=== PATIENT | female | born 1945 | race Caucasian/White ===

== ENCOUNTER 2020-02-21 18:05 | Emergency (ER) | payer OTHER, SELFPAY ==
[2020-02-21 18:06] VITALS: BP 122/77; PULSE 106; RESP 18; O2SAT 97; BMI 33.4
--- NOTE | 2020-02-21 18:06 | ED_ITS ---
Entered by Abiel Dunham, acting as scribe for Mary Rossi HPI - General Adult General: Chief complaint: Fall Stated complaint: FALL; AMS Time Seen by Provider: 02/21/20 18:16 History of Present Illness: HPI narrative: 74 yo female presents with fall. Pt is a senior living resident and was found in the floor. Pt is a bed bound pt. Pt doesn't know how she ended up there. Pt denies any pain. Patient has dementia and advanced Parkinson's. She is in hospice for these issues and diabetes. The patient is denying any pain here and states overall she feels fine. complaint: fall Onset (ago): hour(s) Associated symptoms: Reports nausea; Deny chest pain, confusion, diaphoresis, dyspnea, headache(s), malaise, rash, palpitations or syncope Review of Systems General: Reports: other (negative unless marked) Const: Denies: fever, chills, body aches, fatigue, malaise or diaphoresis Eyes: Denies: change in vision or blurry vision ENMT: Denies: throat pain, painful swallowing, hoarseness, ear pain, ear discharge, Change in hearing or nasal discharge Card: Denies: chest pain, palpitations, irregular heart rhythm, syncope, pre- syncope, shortness of breath on exertion or shortness of breath when lying down Resp: Denies: shortness of breath, productive cough, non-productive cough, wheezing, coughing up blood or chest congestion GI: Reports: nausea : Denies: flank pain, painful urination, urinary frequency, urinary urgency, decreased urine ouput, urinary incontinence or blood in urine Musc: Denies: neck pain, back pain, extremity pain, extremity swelling, joint pain, joint swelling, joint warmth or joint stiffness Skin/Breast: Denies: rash, skin tenderness or yellow skin Neuro: Denies: headache, numbness in extremities, weakness in extremities, changes in sensation, lack of coordination, difficulty walking, dizziness, vertigo or confusion Endo: Denies: excessive thirst, tired all the time, cold intolerance, excessive sweating, flushing or hot flashes Efren/Lymph: Denies: easy bruising, easy bleeding, petechiae or enlarged lymph nodes All/Imm: Denies: hives, throat swelling, tongue swelling, facial swelling or acute wheezing PFSH ED PFSH: Medical History (Updated 02/21/20 @ 22:30 by Mary Rossi) Diabetes Pneumonia Social History Smoking and tobacco status: unknown if ever smoked Physical Exam Const: COMMON NORMALS: no apparent distress, oriented x3, no limitations, healthy appearing and well nourished EXAM LIMITATIONS: no altered mental status GENERAL APPEARANCE: cooperative, well kempt and well developed ORIENTATION/CONSCIOUSNESS: Yes awake HENMT: COMMON NORMALS: normocephalic, head/scalp atraumatic, hearing grossly normal bilaterally, external ears normal, EAC's normal, external nose normal and moist oral mucous membranes HEAD & SCALP: normal to inspection, normocephalic and atraumatic FACE & SINUS: normal facial exam and face symmetric NOSE: external nose normal and nares normal EXTERNAL EAR: Yes external ears normal EXTERNAL AUDITORY CANAL: EAC's normal MOUTH: oral and palatal mucosa normal and tongue normal Eye: COMMON NORMALS: PERRL, EOMs intact bilaterally, conjunctivae normal and no scleral icterus GENERAL EYE: normal appearance of both eyes and normal light reflex CONJUNCTIVA: Yes conjunctivae normal SCLERA: sclerae normal CORNEA: Yes corneas normal PUPIL: Yes PERRL DIRECT OPHTHALMOSCOPY: Yes normal light reflex Neck/C-Spine: COMMON NORMALS: full ROM, no lymphadenopathy, supple, no meningeal signs and no JVD GENERAL: Yes normal visual inspection and Yes trachea midline CERVICAL SPINE: Yes cervical ROM normal Chest: COMMONS NORMALS: inspection of chest normal and palpation of chest normal Resp: COMMON NORMALS: normal respiratory effort, no retractions, no use of accessory muscles and clear to auscultation bilaterally EFFORT & INSPECTION: Yes able to speak in complete sentences AUSCULTATION: clear to auscultation bilaterally Cardio: COMMON NORMALS: no JVD, regular rate, regular rhythm, S1 normal heart sound, S2 normal heart sound, no gallops, no clicks, no murmurs and no rub JUGULAR VENOUS DISTENTION: no JVD RATE: regular rate RHYTHM: regular rhythm HEART SOUNDS: S1 normal and S2 normal GI: COMMON NORMALS: soft to palpation, non-tender, no hepatosplenomegaly and no masses INSPECTION: Yes normal to inspection PALPATION: Yes soft and Yes no hepatosplenomegaly : COMMON NORMALS: Yes no CVA tenderness BLADDER/KIDNEY EXAM: Yes no CVA tenderness Back/Pelvis: COMMON NORMALS: no CVA tenderness, thoracic and lumbar spine normal to inspection, no thoracic nor lumbar tenderness and thoraco-lumbar ROM normal Extremity: COMMON NORMALS: normal to inspection, full ROM, normal capillary refill, no joint enlargement, no clubbing, cyanosis or edema and no calf tenderness Neuro: COMMON NORMALS: oriented x3, CN's II-XII intact bilaterally, moves all extremities, no focal motor deficits and no sensory deficits noted MENINGEAL SIGNS: Yes no meningeal signs Psych: COMMON NORMALS: mental status grossly normal, thought process normal, cooperative, affect normal, speech normal and activity/motor behavior normal APPEARANCE: Yes well kempt SPEECH: Yes normal speech THOUGHT PROCESS: normal thought process Skin: COMMON NORMALS: no rashes or lesions noted, skin turgor normal, no jaundice, no petechiae and no mottling GENERAL SKIN EXAM: no rashes or lesions noted and turgor normal Course Vital Signs: Vital signs: Vital Signs Pulse Rate 104 H 02/21/20 19:17 Respiratory Rate 13 02/21/20 19:17 Blood Pressure 135/87 02/21/20 19:17 Pulse Oximetry 99 02/21/20 19:17 MDM - General Adult MDM Narrative: Medical decision making narrative: The patient has a UTI and appears to have had an NSTEMI. She also has acute on chronic renal insufficiency. The patient does not want any aggressive care and wants to be discharged back to the senior living. I reviewed this with the patient's primary emergency contact Amanda brandon. She will converse with the patient's but the patient has expressed in the past she does not want anything aggressive so if she wants to go home they are ready to let her go home. I reviewed all this with Dr. Liz prison classification counselor for Dr. Zhou and she understands. We will treat the patient's UTI and they will follow her in the senior living. She will continue on in hospice care. Lab Data: Attestation: I reviewed the patient's lab results. Labs: Lab Results 02/21/20 02/21/20 02/21/20 Range/Units 18:30 18:30 18:30 WBC 11.8 H (4.0-10.0) 10^3/ uL RBC 4.30 (4.1-5.3) 10^6/u L Hgb 11.9 (11.5-15.3) g/dL Hct 38.2 (37.0-47.0) % MCV 88.8 (81-99) fL MCH 27.7 L (28.0-34.0) pg MCHC 31.2 (30.0-36.0) g/dL RDW 13.8 (12.1-15.1) % Plt Count 211 (130-400) 10^3/c mm MPV 12.7 H (7.4-10.4) fL Neut % (Auto) 87.1 % Lymph % (Auto) 6.5 % Vance % (Auto) 5.1 % Eos % (Auto) 0.3 % Baso % (Auto) 0.4 % Neut # (Auto) 10.3 H (1.8-7.7) 10^3/u L Lymph # (Auto) 0.8 (0.8-4.8) 10^3/u L Vance # (Auto) 0.6 (0.2-0.9) 10^3/u L Eos # (Auto) 0.0 (0.0-0.8) 10^3/u L Baso # (Auto) 0.1 (0.0-0.1) 10^3/u L Nucleated RBC % (a uto) 0 % Nucleated RBCs # 0.0 /100WBC Sodium 138 (136-145) mmol/L Potassium 3.5 (3.5-5.1) mmol/L Chloride 94 L (98-107) mmol/L Carbon Dioxide 26 (22-29) mmol/L Anion Gap 21.5 H (5-19) BUN 21 (8-23) mg/dL Creatinine 2.2 H (0.5-0.9) mg/dL Glucose 121 H (65-115) mg/dL Calculated Osmolal ity 284 L (285-295) mOsm/k g Calcium 10.8 H (8.5-10.5) mg/dL Magnesium 1.7 (1.7-2.3) mg/dL Total Bilirubin 0.5 (0.15-1.2) mg/dL AST 7 (0-32) U/L ALT < 5 (0-33) U/L Alkaline Phosphata se 84 (35-105) IU/L Creatine Kinase 118 (26-192) U/L Troponin T Baselin e 125 H* (0-10) ng/mL Troponin T 120 Min [place] (0-10) ng/mL Delta Troponin T (0-10) ABS# Total Protein 7.1 (6.6-8.7) g/dL Albumin 4.2 (3.5-5.2) g/dL Globulin 2.9 (1.3-4.6) g/dL Urine Color (Yellow) Urine Appearance (CLEAR) Urine pH (5-7) Ur Specific Gravit y (1.005-1.030) Urine Protein (Negative) Urine Glucose (UA) (Normal) Urine Ketones (Negative) Urine Blood (Negative) Urine Nitrate (Negative) Urine Bilirubin (NEGATIVE) Urine Urobilinogen (Negative) mg/dL Ur Leukocyte Christina ase (Negative) Urine RBC (0-2) /hpf Urine WBC (0-5) /hpf Ur Squamous Epith Cells (0-5) Urine Bacteria (NONE) 02/21/20 02/21/20 Range/Units 20:35 21:50 WBC (4.0-10.0) 10^3/ uL RBC (4.1-5.3) 10^6/u L Hgb (11.5-15.3) g/dL Hct (37.0-47.0) % MCV (81-99) fL MCH (28.0-34.0) pg MCHC (30.0-36.0) g/dL RDW (12.1-15.1) % Plt Count (130-400) 10^3/c mm MPV (7.4-10.4) fL Neut % (Auto) % Lymph % (Auto) % Vance % (Auto) % Eos % (Auto) % Baso % (Auto) % Neut # (Auto) (1.8-7.7) 10^3/u L Lymph # (Auto) (0.8-4.8) 10^3/u L Vance # (Auto) (0.2-0.9) 10^3/u L Eos # (Auto) (0.0-0.8) 10^3/u L Baso # (Auto) (0.0-0.1) 10^3/u L Nucleated RBC % (a uto) % Nucleated RBCs # /100WBC Sodium (136-145) mmol/L Potassium (3.5-5.1) mmol/L Chloride (98-107) mmol/L Carbon Dioxide (22-29) mmol/L Anion Gap (5-19) BUN (8-23) mg/dL Creatinine (0.5-0.9) mg/dL Glucose (65-115) mg/dL Calculated Osmolal ity (285-295) mOsm/k g Calcium (8.5-10.5) mg/dL Magnesium (1.7-2.3) mg/dL Total Bilirubin (0.15-1.2) mg/dL AST (0-32) U/L ALT (0-33) U/L Alkaline Phosphata se (35-105) IU/L Creatine Kinase (26-192) U/L Troponin T Baselin e (0-10) ng/mL Troponin T 120 Min [place] 133.3 H (0-10) ng/mL Delta Troponin T 8.3 (0-10) ABS# Total Protein (6.6-8.7) g/dL Albumin (3.5-5.2) g/dL Globulin (1.3-4.6) g/dL Urine Color Yellow (Yellow) Urine Appearance Cloudy (CLEAR) Urine pH 5 (5-7) Ur Specific Gravit y 1.020 (1.005-1.030) Urine Protein 1+ H (Negative) Urine Glucose (UA) Norm (Normal) Urine Ketones Negative (Negative) Urine Blood 2+ H (Negative) Urine Nitrate Negative (Negative) Urine Bilirubin Neg (NEGATIVE) Urine Urobilinogen Norm (Negative) mg/dL Ur Leukocyte Christina ase 2+ H (Negative) Urine RBC 15-25 H (0-2) /hpf Urine WBC >100 H (0-5) /hpf Ur Squamous Epith Cells 0-4 H (0-5) Urine Bacteria 3+ H (NONE) Imaging Data^: CT Head: Radiologist's impression: [address] [address] [address] Scan Report Signed Patient: Emily Barr Unit #: [id number] : 1945 Age/Sex: 74 / F ADM Date: 02/21/20 Loc: ER Room/Bed: Attending Dr: Ordering Provider/Ordering MD: Mary Rossi DO Date of Service: 02/21/20 Procedure(s): CT head wo con* [id number] Accession Number(s): [id number] Report Number: [id number] PROCEDURE INFORMATION: Exam: CT Head Without Contrast Exam date and time: 02/21/2020 7:48 PM Age: 74 years old Clinical indication: Altered mental status/memory loss; Confusion or disorientation; Additional info: Evans/ams TECHNIQUE: Imaging protocol: Computed tomography of the head without contrast. Total DLP: 723.14 mGy-cm Radiation optimization: All CT scans at this facility use at least one of these dose optimization techniques: automated exposure control; mA and/or kV adjustment per patient size (includes targeted exams where dose is matched to clinical indication); or iterative reconstruction. COMPARISON: CT head wo con* [id number] 05/06/2019 12:50 AM FINDINGS: Brain: There is mild cortical atrophy. Midline shift: There is no shift of midline structures. Ventricles: Normal. No ventriculomegaly. Bones/joints: Unremarkable. No acute fracture. Sinuses: Is a tiny bit of fluid in the right maxillary sinus in keeping with mild sinus disease. Mastoid air cells: Visualized mastoid air cells are well aerated. Soft tissues: Unremarkable. CT/CT head wo con* [id number] IMPRESSION: No acute intracranial finding. Radiation Dose CTDIVOL = (mGy): DLP = 723.14 (mGy-cm) Dictated By: Rosendo Moreno Signed By: Rosendo Moreno Signed Date/Time: 02/21/202039 DD/ 38 CXR: My impression: No acute cardiopulmonary findings. Cardiomegaly. Xray Ortho: My impression: Pelvis -no acute findings. EKG Data^: EKG 1: Attestation: I personally reviewed and interpreted this EKG as follows: EKG interpretation date: 02/21/20 EKG interpretation time: 19:00 Interpretation: Atrial fibrillation with a ventricular rate of 109 beats a minute, no acute ST or T wave changes. Baseline artifact present. Computer generated interpretation: Head CT 02/21/20 19:46 IMPRESSION: No acute intracranial finding. Radiation Dose CTDIVOL = (mGy): DLP = 723.14 (mGy-cm) EKG 2: Attestation: I personally reviewed and interpreted this EKG as follows: EKG interpretation date: 02/21/20 EKG interpretation time: 19:32 Interpretation: Atrial fibrillation with a ventricular rate of 96 beats a minute, nonspecific ST and T wave changes. Baseline artifact present. Computer generated interpretation: Head CT 02/21/20 19:46 IMPRESSION: No acute intracranial finding. Radiation Dose CTDIVOL = (mGy): DLP = 723.14 (mGy-cm) EKG 3: Attestation: I personally reviewed and interpreted this EKG as follows: EKG interpretation date: 02/21/20 EKG interpretation time: 20:41 Interpretation: Atrial fibrillation with ventricular of 112 beats a minute, no acute ST or T wave changes. Computer generated interpretation: Head CT 02/21/20 19:46 IMPRESSION: No acute intracranial finding. Radiation Dose CTDIVOL = (mGy): DLP = 723.14 (mGy-cm) Discharge Plan Discharge Patient Disposition: Home, Self-Care Clinical Impression: Acute UTI, Non-ST elevation VT (NSTEMI) Condition: Stable Prescriptions: New cefdinir 300 mg capsule 300 mg PO Q12H 10 Days Qty: 20 RF: 0 Discharge Orders: Discharge Order (Routine); Ordered 02/21/20 Ordered By: Mary Rossi Referrals: Nemo Jacobsen MD [Primary Care Provider] - 1-3 days Discharge Diet: Advance as tolerated Discharge Activity: Increase activity as tolerated Patient Instructions: Urinary Tract Infection in Women (ED), Acute Coronary Syndrome (ED) Activity Restrictions/Additional Instructions: Please return to the ER immediately for any of the signs or symptoms listed on your discharge instruction sheets, worsening/changing of your symptoms, you are not getting better as quickly as expected, or for ANY other cause or concerns. If you change your mind and wish to return to the ER for further evaluation and care you are more than welcome to do so at any time. Coding Level of Care Code ED Stripper Machine Operator for Chg Fwd Exam Comprehensive The documentation recorded by the Roly richardson Kialy, accurately reflects the service I personally performed and the decisions made by Enid topete Eli N Feb 21, 2020 18:05
--- NOTE | 2020-02-21 18:21 | ECG_ITS ---
Measurements Intervals [place] Rate: 112 P: MI: 0 QRS: 68 QRSD: 98 T: 252 QT: 279 QTc: 382 ATRIAL FIBRILLATION WITH RAPID VENTRICULAR RESPONSE NONSPECIFIC ST & T-WAVE ABNORMALITY Compared to ECG 02/21/2020 19:00:04 No significant changes Electronically Signed On 02-22-2020 19:21:34 CDT by Cara Estrella M.D. [email or web address]
--- NOTE | 2020-02-21 18:21 | XRR_ITS ---
PROCEDURE INFORMATION: Exam: XR Chest, 1 View Exam date and time: 02/21/2020 6:39 PM Age: 74 years old Clinical indication: Cough TECHNIQUE: Imaging protocol: XR of the chest Views: 1 view. COMPARISON: CR Chest 1 [place] [id number] 11/27/2019 7:31 PM FINDINGS: Lungs: No focal peripheral lung consolidation, air bronchogram formation, or silhouette sign. Pleural space: No pleural effusion or pneumothorax. Heart/Mediastinum: The cardiac silhouette is not enlarged. The mediastinal contours are normal. Bones/joints: There are multilevel bridging osteophytes in the spine. Soft tissues: There is a skin fold projecting over the left hemithorax. XR/XR chest 1V portable [id number] IMPRESSION: No pneumonia.
[2020-02-21 18:33] LABS: Basophils # 0.1 10^3/uL (0.0-0.1); Basophils % 0.4 %; Eosinophils % 0.3 %; Hematocrit 38.2 % (37.0-47.0); Hemoglobin 11.9 g/dL (11.5-15.3); Lymphocytes # 0.8 10^3/uL (0.8-4.8); Lymphocytes % 6.5 %; Mean Corpuscular HGB Conc 31.2 g/dL (30.0-36.0); Mean Corpuscular Hemoglobin 27.7 pg (28.0-34.0); Mean Corpuscular Volume 88.8 fL (81-99); Mean Platelet Volume 12.7 fL (7.4-10.4); Monocytes # 0.6 10^3/uL (0.2-0.9); Monocytes % 5.1 %; Neutrophils # 10.3 10^3/uL (1.8-7.7); Neutrophils % 87.1 %; Nucleated Red Blood Cells % 0 %; Platelet Count 211 10^3/cmm (130-400); Red Cell Distribution Width 13.8 % (12.1-15.1); White Blood Count 11.8 10^3/uL (4.0-10.0)
--- NOTE | 2020-02-21 18:38 | ECG_ITS ---
Measurements Intervals [place] Rate: 109 P: MT: 0 QRS: 68 QRSD: 94 T: 251 QT: 352 QTc: 476 ATRIAL FIBRILLATION WITH RAPID VENTRICULAR RESPONSE LOW QRS VOLTAGE IN PRECORDIAL LEADS [QRS DEFLECTION < 1.0 mV IN CHEST LEADS] NONSPECIFIC ST & T-WAVE ABNORMALITY Compared to ECG 11/27/2019 19:34:55 Low QRS voltage now present T-wave abnormality still present Electronically Signed On 02-21-2020 20:35:53 CDT by Cara Estrella M.D. [email or web address]
[2020-02-21] MEDS: sodium chloride 0.9% 1,000 ML 999 ML IV (18:49)
[2020-02-21] MEDS: ondansetron 2 mg/ML SDV 2 mL 4 MG IVP ×2 (18:50→20:58)
[2020-02-21 18:54] LABS: Alanine Aminotransferase < 5 U/L (0-33); Albumin Level 4.2 g/dL (3.5-5.2); Alkaline Phosphatase 84 IU/L (35-105); Anion Gap 21.5 (5-19); Aspartate Amino Transferase 7 U/L (0-32); Blood Urea Nitrogen 21 mg/dL (8-23); Calcium 10.8 mg/dL (8.5-10.5); Carbon Dioxide 26 mmol/L (22-29); Chloride 94 mmol/L (98-107); Creatine Phosphokinase 118 U/L (26-192); Globulin 2.9 g/dL (1.3-4.6); Glucose 121 mg/dL (65-115); Magnesium 1.7 mg/dL (1.7-2.3); Osmolality Calculated 284 mOsm/kg (285-295); Potassium 3.5 mmol/L (3.5-5.1); Sodium 138 mmol/L (136-145); Total Bilirubin 0.5 mg/dL (0.15-1.2); Total Protein 7.1 g/dL (6.6-8.7)
[2020-02-21 19:17] VITALS: BP 135/87; PULSE 104; RESP 13; O2SAT 99
[2020-02-21 19:19] LABS: Troponin(5th) Baseline 125 ng/mL (0-10)
--- NOTE | 2020-02-21 19:46 | CTR_ITS ---
PROCEDURE INFORMATION: Exam: CT Head Without Contrast Exam date and time: 02/21/2020 7:48 PM Age: 74 years old Clinical indication: Altered mental status/memory loss; Confusion or disorientation; Additional info: Evans/ams TECHNIQUE: Imaging protocol: Computed tomography of the head without contrast. Total DLP: 723.14 mGy-cm Radiation optimization: All CT scans at this facility use at least one of these dose optimization techniques: automated exposure control; mA and/or kV adjustment per patient size (includes targeted exams where dose is matched to clinical indication); or iterative reconstruction. COMPARISON: CT head wo con* [id number] 05/06/2019 12:50 AM FINDINGS: Brain: There is mild cortical atrophy. Midline shift: There is no shift of midline structures. Ventricles: Normal. No ventriculomegaly. Bones/joints: Unremarkable. No acute fracture. Sinuses: Is a tiny bit of fluid in the right maxillary sinus in keeping with mild sinus disease. Mastoid air cells: Visualized mastoid air cells are well aerated. Soft tissues: Unremarkable. CT/CT head wo con* [id number] IMPRESSION: No acute intracranial finding. Radiation Dose CTDIVOL = (mGy): DLP = 723.14 (mGy-cm)
[2020-02-21] MEDS: morphine 4 mg/mL SDV 1 mL IVP (20:58)
[2020-02-21 21:01] LABS: Troponin 5 2HR Delta 8.3 ABS# (0-10)
[2020-02-21 21:03] LABS: Troponin 5 2HR 133.3 ng/mL (0-10)
--- NOTE | 2020-02-21 21:12 | XRR_ITS ---
PROCEDURE INFORMATION: Exam: XR Bilateral Hips with Pelvis when Performed Exam date and time: 02/22/2020 7:08 AM Age: 74 years old Clinical indication: Pain and injury or trauma; Fall; Initial encounter; Blunt trauma (contusions or hematomas); Bilateral; Pelvic region; Hip pain and pelvic pain; Injury date: 02/21/20; TECHNIQUE: Imaging protocol: XR bilateral hips with pelvis when performed. Views: 2 views. COMPARISON: CR Pelvis AP 1 or 2 views* [id number] 01/13/2019 10:27 AM FINDINGS: Bones/joints: No fracture. No dislocation. No significant hip joint space narrowing. Soft tissues: No acute soft tissue abnormality. XR/XR hip BI m 5V wo/w pel* [id number] IMPRESSION: No acute osseous abnormality.
[2020-02-21] MEDS: aspirin 325 mg Tablet PO (22:06)
[2020-02-21 22:18] LABS: Bilirubin Urine Neg (NEGATIVE); Blood Urine 2+ (Negative); Glucose Urine UA Norm (Normal); Ketones Urine Negative (Negative); Leukocyte Esterase Urine 2+ (Negative); Nitrate Urine Negative (Negative); Protein Urine 1+ (Negative); RBC Urine 15-25 /hpf (0-2); Squamous Epithelial Cell Urine 0-4 (0-5); Urine Appearance Cloudy (CLEAR); Urine Color Yellow (Yellow); Urobilinogen Urine Norm (Negative); WBC Urine >100 /hpf (0-5); pH Urine 5 (5-7)
[2020-02-21 22:19] LABS: Add Urine Culture? Yes; Bacteria Urine 3+
[2020-02-21] MEDS: cefTRIAXone 2,000 MG in sodium chloride 0.9% (plus) 50 ML 100 MG IV (22:45)
[2020-02-22 01:00] VITALS: BP 124/78; PULSE 78; RESP 16; O2SAT 96
[2020-02-22 03:00] VITALS: BP 127/78; PULSE 76; RESP 14; O2SAT 98
--- NOTE | 2020-02-22 03:05 | PC.NURSE ---
Patient left in stable condition in care of ems for transfer back to [place].
[2020-02-22 03:14] VITALS: BP 127/78; PULSE 76; RESP 14; O2SAT 98
== END 2020-02-22 03:16 | disposition home or self-care (01) ==
PROVIDERS: Emergency Provider Emergency Medicine; Family Provider Internal Medicine; PCP Internal Medicine
DX: N39.0 Urinary tract infection, site not specified (principal); I21.3 ST elevation (STEMI) myocardial infarction of unspecified site; G20 Parkinson's disease; F02.80 Dementia in other diseases classified elsewhere, unspecified severity, without behavioral disturbance, psychotic disturbance, mood disturbance, and anxiety; E11.22 Type 2 diabetes mellitus with diabetic chronic kidney disease; N18.9 Chronic kidney disease, unspecified
CPT/HCPCS: 12345; 70450; 71045; 72170; 73502; 73523; 80053; 81001; 82550; 83735; 84484; 85025; 87086; 87186; 93005; 96365; 96374; 96375; 99284; J0696; J2270; J2405; J7030